=== PATIENT | female | born 1980 | race Caucasian/White ===

== ENCOUNTER 2022-03-08 04:17 | Emergency (ER) | payer OTHER ==
[~2022-03-08] VITALS: Ht 152.4 cm; Wt 45.0 kg
[2022-03-08 06:02] LABS: HEMATOCRIT. 37.9 % (36.0-48.0); MEAN CORPUSCULAR HEMOGLOBIN 29.8 pg (28.0-32.0); MEAN CORPUSCULAR VOLUME 87.1 fL (81.0-99.0); MEAN PLATELET VOLUME 8.7 fl (7.4-10.4); PLATELET 242 x1000/uL (130-400); RED BLOOD CELL COUNT 4.35 mill/uL (4.2-5.4); RED CELL DISTRIBUTION WIDTH 12.7 % (11.6-14.6)
[2022-03-08 06:08] LABS: CLARITY URINE CLOUDY (CLEAR); COLOR URINE DARK YELLOW (YELLOW); KETONES URINE 3+ (NEGATIVE); LEUKOCYTE ESTERASE URINE TRACE (NEGATIVE); NITRITE URINE NEGATIVE (NEGATIVE); OCCULT BLOOD URINE 3+ (NEGATIVE); PH URINE 5.5 (4.5-8.0); PROTEIN URINE 2+ (NEGATIVE); SPECIFIC GRAVITY URINE 1.023 (1.005-1.030)
[2022-03-08 06:08] LABS: CHLORIDE 96 mEq/L (98-107)
[2022-03-08 06:16] LABS: ETHANOL BLOOD < 10 mg/dL
[2022-03-08 06:20] LABS: *BARBITURATES SCREEN URINE NEGATIVE (NEGATIVE); *BENZODIAZEPINES SCREEN URINE NEGATIVE (NEGATIVE); *COCAINE SCREEN URINE NEGATIVE (NEGATIVE); CANNABINOID URINE SCREEN NEGATIVE (NEGATIVE); METHADONE URINE SCREEN NEGATIVE (NEGATIVE); OPIATES URINE SCREEN NEGATIVE (NEGATIVE); PHENCYCLIDINE URINE SCREEN NEGATIVE (NEGATIVE)
[2022-03-08 06:23] LABS: HCG SCREEN NEGATIVE; PLATELET ESTIMATE NORMAL
[2022-03-08 06:41] LABS: *AMPHETAMINES SCREEN URINE PRESUMTIVE POSITIVE (NEGATIVE)
[2022-03-08] MEDS ORDERED: SODIUM CHLORIDE 0.9% 1,000 ML IV SCH (08:00)
[2022-03-08] MEDS ORDERED: SODIUM CHLORIDE 0.9% 1,000 ML IV ONE ×2 (11:45→13:30)
[2022-03-08] MEDS ORDERED: FLUOXETINE HCL 10 MG CAPSULE PO SCH (12:15)
[2022-03-08] MEDS: RISPERIDONE 1MG TABLET PO SCH ×2 (12:40→22:34)
[2022-03-08] MEDS ORDERED: LORAZEPAM 1MG TABLET PO ONE (13:45)
[2022-03-08] MEDS ORDERED: POTASSIUM CHLORIDE 20MEQ TABLET SR PO ONE (14:15)
[2022-03-08] MEDS ORDERED: LORAZEPAM 1MG TABLET PO NR (16:00)
[2022-03-08] MEDS: NITROFURANTOIN 100MG M/M CAPSULE PO SCH (22:34)
[2022-03-09] MEDS: NITROFURANTOIN 100MG M/M CAPSULE PO SCH ×2 (09:45→22:20)
[2022-03-09] MEDS: RISPERIDONE 1MG TABLET PO SCH ×2 (09:45→22:20)
[2022-03-09] MEDS: FLUOXETINE HCL 10 MG CAPSULE PO SCH (09:53)
[2022-03-10] MEDS: RISPERIDONE 1MG TABLET PO SCH ×2 (09:04→21:27)
[2022-03-10] MEDS: FLUOXETINE HCL 10 MG CAPSULE PO SCH (09:04)
[2022-03-10] MEDS: NITROFURANTOIN 100MG M/M CAPSULE PO SCH ×2 (09:04→21:27)
[2022-03-10] MEDS ORDERED: NICOTINE 7MG PATCH TD ONE (21:00)
[2022-03-11 01:36] VITALS: BP 104/53
== END 2022-03-11 02:01 | disposition short-term general hospital (02) ==
LOC: ER 04:17
DX: R45.851 Suicidal ideations (principal); F19.10 Other psychoactive substance abuse, uncomplicated; Z20.822 Contact with and (suspected) exposure to COVID-19
CPT/HCPCS: 36415; 71045; 76705; 80053; 80305; 80320; 81003; 83605; 83690; 84145; 84703; 85025; 87040; 96360; 99285; U0003; G0480